=== PATIENT | male | born 2000 | race Caucasian/White ===

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

== ENCOUNTER → 2020-05-01 | Outpatient (CLI) | payer BC ==
[~2020-05-01] MED LIST changes: +OXYC5 PO
== END | disposition home or self-care (01) ==
LOC: LAB SHORT 09:09 → LAB EV 09:09
DX: K58.0 Irritable bowel syndrome with diarrhea (principal)
CPT/HCPCS: 87015; 87045; 87046; 87177; 87205; 87209; 87899

== ENCOUNTER 2025-02-06 06:17 | Day surgery (SDC) | payer BC ==
[~2025-02-06] VITALS: Ht 195.6 cm; Wt 141.2 kg
[2025-02-06] MEDS ORDERED: CeFAZolin Sodium 3,000 MG VIAL ONE (06:35)
[2025-02-06] MEDS ORDERED: IMODIUM A-D2 M1 (06:44)
[2025-02-06] MEDS ORDERED: Midazolam HCl 1MG / ML 2ML Vial ONE ×2 (07:09→10:22)
[2025-02-06] MEDS ORDERED: FentaNYL Citrate 50 MCG/ML 2 ML Injection ONE ×2 (07:20→08:53)
[2025-02-06] MEDS ORDERED: Dexamethasone Sod Phos 10 MG/ML 1ML VIAL ONE (07:37)
[2025-02-06] MEDS ORDERED: Dexmedetomidine HCL 200 MCG / 2 ML ONE (07:38)
[2025-02-06] MEDS ORDERED: HYDROmorphone HCl/Pf 1MG SYR ONE (07:41)
[2025-02-06] MEDS ORDERED: Bupivacaine HCl 0.25% 50 ML Vial (NON CHARGE) XX ONE ×2 (07:43)
[2025-02-06] MEDS ORDERED: Ondansetron HCl 2 MG / ML 2ML Vial ONE ×2 (08:23→08:52)
--- NOTE | 2025-02-06 08:39 | NUR ---
02/06/25 0839 FRANDY BRUNNER 02 REDUCED TO 5L FROM 10L SIMPLE MASK. SPO2 100%
[2025-02-06] MEDS ORDERED: HYDROcodone 5-APAP 325 TAB ONE ×2 (09:13→09:50)
--- NOTE | 2025-02-06 09:14 | NUR ---
02/06/25 0914 FRANDY BRUNNER FAMILY AT BEDSIDE, , DAD AND STEPDAD
[2025-02-06 10:31] VITALS: BP 139/88
== END 2025-02-06 10:44 | disposition home or self-care (01) ==
LOC: ORSCSDS 06:17
PROVIDERS: Urology
PROC: 0VTB0ZZ Resection of Left Testis, Open Approach (ICD-10-PCS; principal; 2025-02-06 07:30)
DX: C62.92 Malignant neoplasm of left testis, unspecified whether descended or undescended (principal); Z79.899 Other long term (current) drug therapy; F17.220 Nicotine dependence, chewing tobacco, uncomplicated; I10 Essential (primary) hypertension; F41.9 Anxiety disorder, unspecified; F90.9 Attention-deficit hyperactivity disorder, unspecified type
CPT/HCPCS: 88309; 88341; 88342; A9270; J0690; J1100; J1171; J2250; J2405; J2704; J3010; J7120